=== PATIENT | female | born 1960 | race Caucasian/White ===

== ENCOUNTER 2018-01-15 20:06 | Inpatient (IN) | payer BC ==
[2018-01-15] MEDS ORDERED: CIPROFLOXACIN 400MG/D5W 200 ML IVPB (22:00)
[2018-01-15] MEDS ORDERED: ACETAMINOPHEN 325 MG TAB PO (22:00)
[2018-01-15] MEDS ORDERED: DOCUSATE SODIUM 100 MG CAP PO (22:00)
[2018-01-15] MEDS ORDERED: ACETAMINOPHEN 650 MG SUPP PR (22:00)
[2018-01-15] MEDS: HYDROmorphONE 1 MG/ML SYG IV (22:20)
[2018-01-15] MEDS: metroNIDAZOLE 500 MG/NS (PMX) 100 ML IVPB (22:25)
[2018-01-15] MEDS: DEXTROSE 5%-0.45% NACL 1,000 ML IV (22:25)
[2018-01-15] MEDS ORDERED: GLUCOSE GEL 15 GRAM TUBE PO ×2 (22:30)
[2018-01-15] MEDS ORDERED: GLUCOSE GEL 15 GRAM TUBE BUCCAL (22:30)
[2018-01-15] MEDS ORDERED: DEXTROSE 50% 50 ML SYRINGE IV ×2 (22:30)
[2018-01-15] MEDS ORDERED: GLUCAGON 1 MG INJ IM (22:30)
[2018-01-16] MEDS ORDERED: ACCU-CHEK XX (02:00)
[2018-01-16] MEDS: metroNIDAZOLE 500 MG/NS (PMX) 100 ML IVPB ×3 (05:19→22:40)
[2018-01-16] MEDS: PANTOPRAZOLE 40 MG INJ IV (05:19)
[2018-01-16] MEDS: HYDROmorphONE 1 MG/ML SYG IV ×5 (05:19→21:43)
[2018-01-16] MEDS: INSULIN ASPART [NOVOLOG] 3 ML PEN SC ×4 (05:26→17:44)
[2018-01-16 05:54] LABS: ADD MAN DIFF? NO
[2018-01-16 06:00] LABS: WHITE BLOOD COUNT 6.1 10^3/ul (4.8-10.8)
[2018-01-16 06:01] LABS: BASOPHILS % 0.5 % (0.0-2.0); EOSINOPHILS # 0.1 10^3/ul (0.0-0.5); EOSINOPHILS % 1.2 % (0.0-7.0); HEMATOCRIT 35.2 % (37.0-47.0); HEMOGLOBIN 11.7 g/dl (12.0-16.0); LYMPHOCYTES # 1.4 10^3/ul (0.8-2.9); LYMPHOCYTES % 23.5 % (15.0-51.0); MEAN CORPUSCULAR HEMOGLOBIN 28.5 pg (29.0-33.0); MEAN CORPUSCULAR HGB CONC 33.2 g/dl (32.0-37.0); MEAN CORPUSCULAR VOLUME 85.6 fl (82.0-101.0); MEAN PLATELET VOLUME 10.5 fl (7.4-10.4); MONOCYTE # 0.5 10^3/ul (0.3-0.9); MONOCYTES % 8.1 % (0.0-11.0); NEUTROPHILS % 66.4 % (39.0-77.0); PLATELET COUNT 239 10^3/UL (140-415); RED BLOOD COUNT 4.11 10^6/ul (4.20-5.40); RED CELL DISTRIBUTION WIDTH 12.5 % (11.5-14.5)
[2018-01-16 06:33] LABS: ANION GAP 17 (8-16); BLOOD UREA NITROGEN 7 mg/dl (7-20); CALCIUM 8.5 mg/dl (8.4-10.2); CARBON DIOXIDE 25 mmol/L (21-31); CHLORIDE 102 mmol/L (97-110); CREATININE 0.53 mg/dl (0.44-1.00); GLUCOSE 101 mg/dl (70-220); POTASSIUM 4.5 mmol/L (3.5-5.1); SODIUM 139 mmol/L (135-144)
[2018-01-16] MEDS: CIPROFLOXACIN 400MG/D5W 200 ML IVPB ×2 (08:22→21:26)
[2018-01-16] MEDS: ONDANSETRON 4 MG INJ IV (10:31)
[2018-01-16] MEDS: DEXTROSE 5%-0.45% NACL 1,000 ML IV ×2 (12:18→21:26)
[2018-01-16 16:15] LABS: ADD UMIC YES; UR ASCORBIC ACID NEGATIVE (NEGATIVE); UR BILIRUBIN (Dip) NEGATIVE (NEGATIVE); UR BLOOD (Dip) NEGATIVE (NEGATIVE); UR CLARITY CLEAR (CLEAR); UR COLOR YELLOW (YELLOW); UR GLUCOSE (Dip) NEGATIVE (NEGATIVE); UR KETONES (Dip) NEGATIVE (NEGATIVE); UR LEUKOCYTE ESTERASE (Dip) 3+ Leu/ul (NEGATIVE); UR NITRITE (Dip) NEGATIVE (NEGATIVE); UR RBC 7 /HPF (0-5); UR SPECIFIC GRAVITY (Dip) 1.012 (1.003-1.030); UR TOTAL PROTEIN (Dip) NEGATIVE (NEGATIVE); UR UROBILINOGEN (Dip) NEGATIVE (NEGATIVE); UR WBC 13 /HPF (0-5)
[2018-01-17] MEDS: DIPHENHYDRAMINE 50 MG INJ IV (00:27)
[2018-01-17 05:17] LABS: ADD MAN DIFF? NO
[2018-01-17 05:21] LABS: BASOPHILS % 0.2 % (0.0-2.0); EOSINOPHILS # 0.1 10^3/ul (0.0-0.5); EOSINOPHILS % 1.2 % (0.0-7.0); HEMATOCRIT 36.1 % (37.0-47.0); LYMPHOCYTES # 0.9 10^3/ul (0.8-2.9); LYMPHOCYTES % 20.9 % (15.0-51.0); MEAN CORPUSCULAR HEMOGLOBIN 28.1 pg (29.0-33.0); MEAN CORPUSCULAR HGB CONC 33.2 g/dl (32.0-37.0); MEAN CORPUSCULAR VOLUME 84.5 fl (82.0-101.0); MEAN PLATELET VOLUME 10.1 fl (7.4-10.4); MONOCYTE # 0.4 10^3/ul (0.3-0.9); MONOCYTES % 9.9 % (0.0-11.0); NEUTROPHIL # 2.8 10^3/ul (1.6-7.5); NEUTROPHILS % 67.6 % (39.0-77.0); PLATELET COUNT 217 10^3/UL (140-415); RED BLOOD COUNT 4.27 10^6/ul (4.20-5.40); RED CELL DISTRIBUTION WIDTH 12.1 % (11.5-14.5)
[2018-01-17 05:21] LABS: WHITE BLOOD COUNT 4.2 10^3/ul (4.8-10.8)
[2018-01-17] MEDS: metroNIDAZOLE 500 MG/NS (PMX) 100 ML IVPB ×3 (05:52→22:22)
[2018-01-17] MEDS: PANTOPRAZOLE 40 MG INJ IV (05:52)
[2018-01-17] MEDS: INSULIN ASPART [NOVOLOG] 3 ML PEN SC ×5 (05:58→21:12)
[2018-01-17 06:04] LABS: ANION GAP 15 (8-16); BLOOD UREA NITROGEN 6 mg/dl (7-20); CALCIUM 8.8 mg/dl (8.4-10.2); CARBON DIOXIDE 30 mmol/L (21-31); CHLORIDE 101 mmol/L (97-110); GLUCOSE 118 mg/dl (70-220); POTASSIUM 4.6 mmol/L (3.5-5.1); SODIUM 141 mmol/L (135-144)
[2018-01-17 08:03] LABS: HEMOGLOBIN A1C 6.1 % (0-5.9)
[2018-01-17] MEDS: CIPROFLOXACIN 400MG/D5W 200 ML IVPB ×2 (08:20→21:06)
[2018-01-17] MEDS: HYDROmorphONE 1 MG/ML SYG IV ×2 (08:21→14:28)
[2018-01-17] MEDS: OXYBUTYNIN (XL) 5 MG TAB PO (11:49)
[2018-01-18] MEDS: metroNIDAZOLE 500 MG/NS (PMX) 100 ML IVPB ×3 (06:28→22:13)
[2018-01-18] MEDS: PANTOPRAZOLE 40 MG INJ IV (06:28)
[2018-01-18] MEDS: DEXTROSE 5%-0.45% NACL 1,000 ML IV ×2 (06:33→21:41)
[2018-01-18] MEDS: INSULIN ASPART [NOVOLOG] 3 ML PEN SC ×4 (07:30→21:00)
[2018-01-18] MEDS: OXYBUTYNIN (XL) 5 MG TAB PO (08:23)
[2018-01-18] MEDS: CIPROFLOXACIN 400MG/D5W 200 ML IVPB ×2 (08:23→21:18)
[2018-01-19] MEDS: metroNIDAZOLE 500 MG/NS (PMX) 100 ML IVPB ×2 (05:34→13:52)
[2018-01-19] MEDS: PANTOPRAZOLE 40 MG INJ IV (05:34)
[2018-01-19 06:10] LABS: ADD MAN DIFF? NO
[2018-01-19 06:21] LABS: WHITE BLOOD COUNT 5.1 10^3/ul (4.8-10.8)
[2018-01-19 06:21] LABS: BASOPHILS % 0.4 % (0.0-2.0); EOSINOPHILS # 0.1 10^3/ul (0.0-0.5); EOSINOPHILS % 2.8 % (0.0-7.0); HEMATOCRIT 37.8 % (37.0-47.0); HEMOGLOBIN 12.6 g/dl (12.0-16.0); LYMPHOCYTES # 1.7 10^3/ul (0.8-2.9); MEAN CORPUSCULAR HEMOGLOBIN 28.2 pg (29.0-33.0); MEAN CORPUSCULAR HGB CONC 33.3 g/dl (32.0-37.0); MEAN CORPUSCULAR VOLUME 84.6 fl (82.0-101.0); MEAN PLATELET VOLUME 10.4 fl (7.4-10.4); MONOCYTE # 0.6 10^3/ul (0.3-0.9); MONOCYTES % 11.3 % (0.0-11.0); NEUTROPHIL # 2.6 10^3/ul (1.6-7.5); NEUTROPHILS % 51.3 % (39.0-77.0); PLATELET COUNT 262 10^3/UL (140-415); RED BLOOD COUNT 4.47 10^6/ul (4.20-5.40); RED CELL DISTRIBUTION WIDTH 12.3 % (11.5-14.5)
[2018-01-19] MEDS: INSULIN ASPART [NOVOLOG] 3 ML PEN SC ×2 (07:30→11:30)
[2018-01-19] MEDS: CIPROFLOXACIN 400MG/D5W 200 ML IVPB (08:37)
[2018-01-19] MEDS: OXYBUTYNIN (XL) 5 MG TAB PO (08:37)
[2018-01-19] MEDS: DEXTROSE 5%-0.45% NACL 1,000 ML IV (11:32)
== END 2018-01-19 17:44 | disposition home or self-care (01) | DRG 392 ==
LOC: PP2 20:06
PROVIDERS: Internal Medicine Nephrology
DX: K57.32 Diverticulitis of large intestine without perforation or abscess without bleeding (principal); D64.9 Anemia, unspecified; K59.00 Constipation, unspecified; Z90.49 Acquired absence of other specified parts of digestive tract
CPT/HCPCS: 71046; 80048; 81001; 82962; 83036; 84703; 85025; 87081

== ENCOUNTER 2018-03-03 10:01 | Day surgery (SDC) | payer BC ==
[2018-03-03] MEDS ORDERED: FENTAnyl 50 MCG/ML VIAL (12:20)
[2018-03-03] MEDS ORDERED: MIDAZOLAM 1 MG/ML 2 ML INJ ×2 (12:20)
== END 2018-03-03 14:30 | disposition home or self-care (01) ==
LOC: GIL 10:01
DX: Z12.11 Encounter for screening for malignant neoplasm of colon (principal); K57.90 Diverticulosis of intestine, part unspecified, without perforation or abscess without bleeding; E11.9 Type 2 diabetes mellitus without complications
CPT/HCPCS: 45378; 82962